=== PATIENT | female | born 1960 | race African-American/Black ===

== ENCOUNTER 2024-12-12 15:24 | Emergency (ER) | payer SELFPAY ==
[~2024-12-12] VITALS: Ht 167.6 cm; Wt 90.0 kg
[2024-12-12 15:35] VITALS: O2SAT 99
[2024-12-12] MEDS ORDERED: CEPH500C2 MT (16:18)
[2024-12-12] MEDS ORDERED: FAMO-135 MT (16:18)
[2024-12-12 16:54] VITALS: BP 155/87; PULSE 90; RESP 16; TEMP 36.8; O2SAT 99
== END 2024-12-12 16:53 | disposition home or self-care (01) ==
LOC: ER 15:24
DX: S00.86XA Insect bite (nonvenomous) of other part of head, initial encounter (principal); W57.XXXA Bitten or stung by nonvenomous insect and other nonvenomous arthropods, initial encounter; Y93.89 Activity, other specified; Y92.89 Other specified places as the place of occurrence of the external cause; Y99.8 Other external cause status
CPT/HCPCS: 99283